=== PATIENT | female | born 1940 | race Caucasian/White ===

== ENCOUNTER → 2018-06-01 | Outpatient (CLI) | payer OTHER | LOC: M.MRI 12:46 | DX: S83.242A Other tear of medial meniscus, current injury, left knee, initial encounter (principal); M17.12 Unilateral primary osteoarthritis, left knee; M25.462 Effusion, left knee; M71.22 Synovial cyst of popliteal space [Baker], left knee; X58.XXXA Exposure to other specified factors, initial encounter; Y93.89 Activity, other specified; Y92.89 Other specified places as the place of occurrence of the external cause; Y99.8 Other external cause status; Z96.652 Presence of left artificial knee joint ==

== ENCOUNTER 2018-07-03 06:31 | Inpatient (IN) | payer OTHER ==
[2018-06-21 08:39] LABS: HEMATOCRIT 41.2 % (37.0-47.0); HEMOGLOBIN 14.2 gm/dL (12.0-15.0); MCH 33.1 pg (26.0-34.0); MCHC 34.4 g/dL (28.0-37.0); MCV 96.3 fL (80.0-100.0); MPV 8.3 fl. (7.2-11.1); RBC 4.28 mil/uL (4.20-5.00); RDW-CV 13.3 % (10.5-14.5); WBC 4.8 thou/uL (4.0-11.0)
[2018-06-21 08:51] LABS: PROTIME 9.9 Seconds (9.20-11.50)
[2018-06-21 08:54] LABS: ALBUMIN 3.3 g/dL (3.4-5.0); CALCIUM 9.3 mg/dL (8.5-10.1); CREATININE 0.9 mg/dL (0.6-1.3); TOTAL BILIRUBIN 0.3 mg/dL (<0.1-1.0); TOTAL PROTEIN 6.1 g/dL (6.4-8.2)
[2018-06-21 09:04] LABS: URINE BILIRUBIN NEGATIVE (Negative); URINE BLOOD NEGATIVE (Negative); URINE CLARITY CLEAR; URINE COLOR YELLOW; URINE GLUCOSE-RANDOM NEGATIVE (Negative); URINE KETONES NEGATIVE (Negative); URINE LEUKOCYTES-REFLEX NEGATIVE (Negative); URINE NITRITE-REFLEX NEGATIVE (Negative); URINE PROTEIN NEGATIVE (Negative); URINE UROBILINOGEN 0.2 E.U./dl (0.2-1.0)
--- NOTE | 2018-06-21 14:12 | EKG ---
[place] [address] ELECTROCARDIOGRAM REPORT Name: MIESHA CELAYA Room: PRE IN [facility]#: [id number] Admission: Attend Phys: Sol Jung Discharge: Date of : 36 Report #: [id number] THIS REPORT FOR: //name// [facility] Test Date: 2018-06-21 Test Time: 09:06:46 Pat Name: MIESHA CELAYA Department: Room: Gender: F Elder Counselor: : 1940 Requested By: Ozzie Urbina Order Number: [id number] Reading MD: Mango Ontiveros Measurements Intervals [place] Rate: 49 P: 66 SC: 164 QRS: 10 QRSD: 98 T: 60 QT: 525 QTc: 475 Interpretive Statements Sinus bradycardia Borderline low voltage, extremity leads No previous ECG available for comparison Electronically Signed On 06-21-2018 14:12:01 ALARM ADJUSTER by Mango Ontiveros [email or web address] <ELECTRONICALLY SIGNED> By: Mango Ontiveros MD, [facility] 06/21/18 1412 [id number] [id number] Mango Ontiveros MD, FACC /EPI
[~2018-07-03] VITALS: Ht 149.9 cm; Wt 90.7 kg
[~2018-07-03 06:31] MED LIST: ACETAMINOPHEN-1 EAC1 PO; IBUPROFEN 400400 M2 PO; MAXZIDE-25 MG1 EACH PO; PROAIR HFA8.5 GM INH
[2018-07-03 15:41] VITALS: BP 144/43
--- NOTE | 2018-07-03 16:15 | NUR ---
PATIENT ARRIVED TO UNIT AT 1530. ALERT AND ORIENTED X4. ASSESSMENT COMPLETED AND CHARTED. VSS ON 3 LITERS 02. NO COMPLAINTS OD PAIN, NAUSEA, OR SOA. FLUIDS STARTED ORDERED. PATIENT RESTING COMFORTABLY IN BED UPON COMPLETED HOURLY ROUNDS. FALL PRECAUTIONS IN PLACE. CALL LIGHT WITHIN REACH. NURSING WILL CONTINUE TO MONITOR.
[2018-07-03 20:00] VITALS: BP 122/42
[2018-07-04] VITALS: BP 111/38
[2018-07-04 04:00] VITALS: BP 109/53
[2018-07-04 04:33] LABS: HEMOGLOBIN 12.9 gm/dL (12.0-15.0); MCH 31.9 pg (26.0-34.0); MCV 93.9 fL (80.0-100.0); MPV 8.5 fl. (7.2-11.1); NUCLEATED RBCS 0 /100WBC; PLATELET COUNT* 211 thou/uL (150-400); RBC 4.05 mil/uL (4.20-5.00); RDW-CV 13.7 % (10.5-14.5); WBC 8.9 thou/uL (4.0-11.0)
[2018-07-04 04:48] LABS: CALCIUM 8.3 mg/dL (8.5-10.1); CREATININE 0.8 mg/dL (0.6-1.3); MAGNESIUM 2.1 mg/dL (1.8-2.4); POTASSIUM 4.3 mmol/L (3.5-5.1)
--- NOTE | 2018-07-04 04:54 | NUR ---
ASSESSMENT: P REMAIN ALERT AND ORIENT TIMES FOUR. LEFT KNEE WITH BULKY SANIYA WRAP C/D/I. HEMOVAC NOTED WITH BLOODY OUTPUT EQUALLING 120ML THIS SHIFT. ON CPM TIMES TWO FOR ONE HOUR EACH, TOLERATED WELL. PRN PAIN MEDICATIONS GIVEN PRIOR TO GETTING ON THE CPM MACHINE. PT'S HOME CPAP STRAPS BROKE, RT DID NOT HAVE A REPLACEMENT, PT REMAINED ON 3 LITERS DURING THE NIGHT, SATS WERE 93-97%. WHEN SLEEPING SATS WERE 95%. TOLERATING PO INTAKE. DENIES SOB, N/V. RATE PAIN ON HIGH END ONLY WITH MOVEMENT. VSS, AFEBRILE. WILL CONTINE TO MONITOR, SLOW PROGRESS TOWARDS DC GOALS.
[2018-07-04 06:57] LABS: ABSOLUTE LYMPHOCYTES 1.1 thou/uL (0.8-5.3); ABSOLUTE MONOCYTES 0.4 thou/uL (0.0-1.2); ABSOLUTE NEUTROPHILS 7.4 thou/uL (1.6-8.1); ANISOCYTOSIS 1+; PLATELET ESTIMATE ADEQUATE; POIKILOCYTOSIS 1+
[2018-07-04 08:00] VITALS: BP 104/50
[2018-07-04 11:16] VITALS: BP 104/50
--- NOTE | 2018-07-04 15:30 | NUR ---
SPOKE WITH PT.AND DAUGHTER,JENNIFER. PT.LIVES WITH JENNIFER. SHE WILL BE WITH PT.AT ALL TIMES AND CAN ASSIST HER AT HOME. PT. HAS A FRONT WHEEL WALKER FOR HOME USE,RAISED TOILETS AND A SHOWER BENCH. DISCUSSED HOME HEALTH AND SHE WANTS TO USE [facility]. SHE USED THEM PREVIOUSLY AND LOVES THEM. CM CALLED IN PRESCRIPTION FOR XARELTO TO PT.'S PHARMACY, WRITTEN. COPAY IS $18. SHE SAID SHE USES A LOT OF HERBAL COMPOUNDS AND IS GOING TO ASK THE DR.IF SHE CAN USE SOMETHING CALLED PROTANDOM HER BLOOD THINNER. DISCUSSSED THE IMPORTANCE OF DVT PROPHALAXSIS. SHE STARTED TALKING ABOUT CLINICAL TRIALS OF THIS MED. EXPLAINED SHE WOULD NEED TO DISCUSS WITH HER DR.AND IT WOULD BE UP TO HIM. INFORMED DEVON MOORE.
[2018-07-04 16:11] VITALS: BP 107/55
--- NOTE | 2018-07-04 16:23 | NUR ---
RECIEVED O.T. EVAL AND TX. WILL DEFER TO P.T. AND NURSING. PLEASE ORDER FURTHER O.T. SERVICES IF NEEDED.
--- NOTE | 2018-07-04 16:41 | OP ---
[facility] [address] [place] [address] OPERATIVE REPORT Name: MIESHA CELAYA Room: [address] M.R.#: [id number] Admission: 07/03/18 Attend Phys: Sol Jung Discharge: Date of : 36 Report #: [id number] THIS REPORT FOR: //name// CC: Mallory Horn DATE OF SERVICE: 07/03/2018 PREOPERATIVE DIAGNOSIS: Right knee osteoarthritis. POSTOPERATIVE DIAGNOSIS: Right knee osteoarthritis. PROCEDURE: Right total knee arthroplasty. SURGEON: Ozzie Urbina II, DO STRUCTURAL STEEL WORKER: OUSMANE Stevens. ANESTHESIA: General endotracheal. ESTIMATED BLOOD LOSS: 50 mL ANTIBIOTICS: Ancef preoperatively. DRAINS: Medium Hemovac. COMPLICATIONS: None. DISPOSITION: Stable to recovery room. IMPLANTS: Listed in the operative record and progress note. BRIEF HISTORY: The patient was seen in the preoperative area. Preoperative H and P was performed. Site was marked, questions were answered. Risks and benefits were discussed with the patient in detail about the surgery. The patient wished to proceed assuming all risks. DESCRIPTION OF PROCEDURE: The patient was taken to the operative suite, placed supine on the operating table and given appropriate anesthesia. A well-padded tourniquet was applied to the upper thigh, was inflated to 300 mmHg after gravity exsanguination. The operative knee was sterilely prepped and draped. Surgery began by midline incision. This was carried down to the subcutaneous tissues. A medial parapatellar arthrotomy was performed and carried down to bone. The patella was then everted and excess soft tissue was removed around the femur. Femoral cutting block was then applied, checked with a drop lauren for [facility] [address] [place] [address] OPERATIVE REPORT Name: MIESHA CELAYA Room: [address] M.R.#: [id number] Admission: 07/03/18 Attend Phys: Sol Jung Discharge: Date of : 36 Report #: [id number] rotational alignment, pinned into appropriate position and appropriate cuts were made. A 4-in-1 cutting block was then applied, checked for rotation alignment, pinned in appropriate position and appropriate cuts were made. The tibia was then exposed. Excess meniscus was removed. Retractor was placed on the collateral ligaments. The tibial guide block was then applied, pinned in appropriate position, checked with a drop lauren for rotation alignment and slope and appropriate cut was made. The tibial bone was removed. Tibial base plate was then applied and checked for rotational alignment with the drop lauren and pinned into appropriate position. The femur was then applied and box cut was reamed. This was then trialed with appropriate spacer, which showed excellent fit and fill and excellent stability of the knee throughout all range of motion. The patella was then reamed in appropriate fashion and sized to appropriate size. Three peg holes were drilled. It was then trialed and showed excellent flexion, extension, excellent tracking and tilt within the groove. These trials were then removed. The tibia was punched in appropriate fashion. Bone ends were cleansed with Pulsavac irrigation. Cement was mixed and applied to the final implants. Knee was then malletted in position and held the knee in extension and compressed to allow the cement to cure. After it cured, excess was removed utilizing a [place] and osteotome. The wound was then copiously irrigated and the final spacer was malleted into position. The tourniquet was deflated. Hemostasis was obtained with electrocautery. Pain cocktail was injected. PRP gel was sprayed throughout the internal aspects of the knee. Medium Hemovac drain was applied. Capsule was closed with #2 FiberWire and #1 Vicryl in hyqmmc-gl-zibqt fashion. Skin was closed with 2-0 Vicryl and a running 3-0 Monocryl. Dermabond and sterile dressing applied. Crow wrap and PolarCare applied. The patient was transported to recovery room in stable condition. Counts were correct throughout the procedure. COUNTS: Correct. <ELECTRONICALLY SIGNED> By: Ozzie Urbina II, DO 07/04/18 1641 [id number] Urbina II, DO /nt
[2018-07-04 20:10] VITALS: BP 115/31
--- NOTE | 2018-07-05 04:30 | NUR ---
PATIENT HAS REMAINED ALERT AND ORIENTED X 4 THROUGHOUT THE SHIFT AND RESTING QUIETLY ON HOURLY ROUNDS. UP TO BSC WITH CGA, GAIT BELT AND WALKER. REFUSED CPM AT HS. MEDICATED FOR PAIN X 3 OF THIS WRITING TO GOOD EFFECT. DRESSING LEFT KNEE CLEAN AND DRY. VITAL SIGNS STABLE. CONTINUE TO MONITOR.
[2018-07-05 04:54] LABS: HEMATOCRIT 36.2 % (37.0-47.0); HEMOGLOBIN 12.3 gm/dL (12.0-15.0)
[2018-07-05 05:20] VITALS: BP 125/43
[2018-07-05 08:05] VITALS: BP 101/58
[2018-07-05] MEDS ORDERED: XARELTO10 MG PO (08:39)
[2018-07-05] MEDS ORDERED: HYDROCODON-ACE1 EAC7 PO (08:39)
--- NOTE | 2018-07-05 11:14 | NUR ---
D/C PLAN: PT WILL D/C TODAY TO HOME W/[facility]. CM SPOKE WITH JAE IN ADMISSION WHO STATED PT WILL START HOME HEALTH TOMORROW AND THEY WILL CALL PT TO SCHEDULE. [facility] [phone] FAX [phone]. PT NOTIFIED OF PLAN.
[2018-07-05 13:23] VITALS: BP 104/50
[2018-07-05] MEDS ORDERED: PERCOCET PO (13:46)
--- NOTE | 2018-07-05 14:20 | NUR ---
PT LEFT UNIT BY WHEELCHAIR WITH NURSING STAFF AT 1415. IV DISCHARGED. PT EDUCATED ON NEW MED SCRIPS AND D/C INSTRUCTION. PT VERBALIZED UNDERSTANDING. ALL BELONGING LEFT WITH THE PT.
== END 2018-07-05 14:33 | disposition home health service (06) | DRG 470 ==
LOC: M.PRE 06:31 → M.TBA 09:37 → M.ORTHSURG 09:37 → M.PRE 14:11 → M.ORTHSURG 14:36
PROVIDERS: Family Medicine; Orthopaedic Surgery; ADMIT Internal Medicine
PROC: 0SRC0J9 Replacement of Right Knee Joint with Synthetic Substitute, Cemented, Open Approach (ICD-10-PCS; principal; 2018-07-03)
DX: M17.12 Unilateral primary osteoarthritis, left knee (principal); M17.11 Unilateral primary osteoarthritis, right knee; N18.3 Chronic kidney disease, stage 3 (moderate); Z96.643 Presence of artificial hip joint, bilateral; I12.9 Hypertensive chronic kidney disease with stage 1 through stage 4 chronic kidney disease, or unspecified chronic kidney disease; Z96.651 Presence of right artificial knee joint; J45.909 Unspecified asthma, uncomplicated; Z90.49 Acquired absence of other specified parts of digestive tract; Z28.21 Immunization not carried out because of patient refusal; Z79.899 Other long term (current) drug therapy

== ENCOUNTER → 2018-11-13 | Outpatient (CLI) | payer OTHER, SELFPAY ==
[~2018-11-13] MED LIST changes: +HYDROCODON-ACE1 EAC7 PO; +PERCOCET PO; +XARELTO10 MG PO
== END ==
LOC: M.RAD 11:58
DX: M48.061 Spinal stenosis, lumbar region without neurogenic claudication (principal); M25.78 Osteophyte, vertebrae; M54.16 Radiculopathy, lumbar region; M43.16 Spondylolisthesis, lumbar region; M41.86 Other forms of scoliosis, lumbar region; Z96.643 Presence of artificial hip joint, bilateral

== ENCOUNTER → 2018-11-21 | Outpatient (CLI) | payer OTHER, SELFPAY | LOC: M.CT 11-07 15:17 | DX: M43.06 Spondylolysis, lumbar region (principal); M54.16 Radiculopathy, lumbar region; M48.061 Spinal stenosis, lumbar region without neurogenic claudication; M25.78 Osteophyte, vertebrae; J45.909 Unspecified asthma, uncomplicated; E11.9 Type 2 diabetes mellitus without complications; K21.9 Gastro-esophageal reflux disease without esophagitis; I10 Essential (primary) hypertension; E78.00 Pure hypercholesterolemia, unspecified; G47.33 Obstructive sleep apnea (adult) (pediatric); Z88.1 Allergy status to other antibiotic agents; Z88.8 Allergy status to other drugs, medicaments and biological substances ==

== ENCOUNTER → 2018-12-20 | Outpatient (CLI) | payer OTHER, SELFPAY | LOC: M.ULTRA 12:25 → M.MRI 14:30 | DX: M41.86 Other forms of scoliosis, lumbar region (principal); M47.816 Spondylosis without myelopathy or radiculopathy, lumbar region; M48.07 Spinal stenosis, lumbosacral region; M43.16 Spondylolisthesis, lumbar region; M79.662 Pain in left lower leg ==

== ENCOUNTER → 2018-12-27 | Outpatient (CLI) | payer OTHER, SELFPAY | LOC: M.RAD 15:24 | DX: M81.0 Age-related osteoporosis without current pathological fracture (principal) ==

== ENCOUNTER 2019-04-14 01:43 | Emergency (ER) | payer OTHER ==
[~2019-04-14] VITALS: Ht 152.4 cm; Wt 90.7 kg
[2019-04-14 02:03] LABS: ABSOLUTE BASOPHILS 0.1 thou/uL (0.0-0.2); ABSOLUTE LYMPHOCYTES 1.7 thou/uL (0.8-5.3); ABSOLUTE MONOCYTES 0.8 thou/uL (0.0-1.2); ABSOLUTE NEUTROPHILS 8.4 thou/uL (1.6-8.1); BASOPHILS 0.8 %; EOSINOPHILS 0.1 %; HEMATOCRIT 42.4 % (37.0-47.0); HEMOGLOBIN 14.7 gm/dL (12.0-15.0); LYMPHOCYTES 15.9 %; MCH 32.6 pg (26.0-34.0); MCHC 34.8 g/dL (28.0-37.0); MCV 93.6 fL (80.0-100.0); MPV 7.8 fl. (7.2-11.1); NUCLEATED RBCS 0 /100WBC; PLATELET COUNT* 271 thou/uL (150-400); POLYS 76.2 %; RBC 4.53 mil/uL (4.20-5.00); RDW-CV 13.9 % (10.5-14.5)
[2019-04-14 02:16] LABS: URINE BILIRUBIN NEGATIVE (Negative); URINE BLOOD TRACE (Negative); URINE CLARITY CLEAR; URINE COLOR YELLOW; URINE GLUCOSE-RANDOM NEGATIVE (Negative); URINE KETONES NEGATIVE (Negative); URINE LEUKOCYTES-REFLEX TRACE (Negative); URINE NITRITE-REFLEX NEGATIVE (Negative); URINE PROTEIN NEGATIVE (Negative); URINE SPECIFIC GRAVITY <= 1.005 (1.005-1.030); URINE UROBILINOGEN 0.2 E.U./dl (0.2-1.0)
[2019-04-14 02:18] LABS: CALCIUM 9.5 mg/dL (8.5-10.1); CREATININE 0.9 mg/dL (0.6-1.3); POTASSIUM 3.8 mmol/L (3.5-5.1)
[2019-04-14 02:23] LABS: ALBUMIN 3.6 g/dL (3.4-5.0); TOTAL BILIRUBIN 0.2 mg/dL (<0.1-1.0); TOTAL PROTEIN 6.8 g/dL (6.4-8.2)
[2019-04-14 03:01] LABS: BACTERIA-REFLEX 1-9 Few /HPF (None Seen); CASTS None Seen /LPF (None Seen); CRYSTALS None Seen /LPF (None Seen); SQUAMOUS 0-3 Few /LPF (0-3); URINE RBC 0-2 Rare /HPF (0-2); URINE WBC-REFLEX 0-5 Rare /HPF (0-5)
[2019-04-14 05:40] VITALS: BP 139/48
--- NOTE | 2019-04-14 12:28 | EKG ---
[place] [address] ELECTROCARDIOGRAM REPORT Name: CELAYAMIESHA [facility] [id number] Admission: 04/14/19 Attend Phys: Discharge: 04/14/19 Date of : 36 Report #: [id number] THIS REPORT FOR: //name// [facility] ED Test Date: 2019-04-14 Test Time: 01:50:44 Pat Name: MIESHA CELAYA Department: Room: Gender: F Computer Bookkeeper: [place] : 1940 Requested By: Kelly Mcgee Order Number: [id number] MD: Mango Ontiveros Measurements Intervals [place] Rate: 53 P: 55 WV: 163 QRS: -24 QRSD: 96 T: 36 QT: 472 QTc: 444 Interpretive Statements Sinus rhythm Borderline left axis deviation Nonspecific T abnormalities, anterior leads Compared to ECG 06/21/2018 09:06:46 Sinus bradycardia no longer present Electronically Signed On 04-14-2019 12:28:08 OPERATIONS OFFICER AFLOAT by Mango Ontiveros [email or web address] <ELECTRONICALLY SIGNED> By: Mango Ontiveros MD, [facility] 04/14/19 1228 0150 0150 Mango Ontiveros MD, FAC /EPI
--- NOTE | 2019-04-15 14:26 | EKG ---
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: [place] : 1940 Requested By: Kelly Mcgee Order Number: [id number] MD: Mango Ontiveros Measurements Intervals [place] Rate: 53 P: 53 WV: 160 QRS: -29 QRSD: 97 T: 61 QT: 485 QTc: 456 Interpretive Statements Sinus bradycardia Borderline left axis deviation Nonspecific T abnormalities, anterior leads Compared to ECG 04/14/2019 01:50:44 No significant changes Electronically Signed On 04-15-2019 14:26:01 GAUGE AND WEIGH MACHINE ADJUSTER by Mango Ontiveors [email or web address] <ELECTRONICALLY SIGNED> By: Mango Ontiveros MD, [facility] 04/15/19 1426 0153 0153 Mango Ontiveros MD, FACC /EPI
== END 2019-04-14 05:40 | disposition home or self-care (01) ==
LOC: M.ERS 01:43
PROVIDERS: Emergency Medicine
DX: R07.9 Chest pain, unspecified (principal); I10 Essential (primary) hypertension; J45.909 Unspecified asthma, uncomplicated; Z90.49 Acquired absence of other specified parts of digestive tract; Z91.048 Other nonmedicinal substance allergy status; Z88.6 Allergy status to analgesic agent

== ENCOUNTER → 2020-10-09 | Outpatient (CLI) | payer MEDICARE | LOC: M.ULTRA 08:46 | PROVIDERS: ATTEND Nurse Practitioner Family | DX: E04.1 Nontoxic single thyroid nodule (principal); R22.1 Localized swelling, mass and lump, neck ==